=== PATIENT | female | born 1990 | race Caucasian/White ===

== ENCOUNTER 2020-01-04 17:36 | Observation (INO) ==
[2020-01-04] MEDS ORDERED: Isovue-370 500 ML BOTTLE IVP ONE (17:53)
[2020-01-04 18:08] LABS: Hematocrit 38.8 % (35.3-44.9); Mean Corpuscular HGB Conc 30.9 g/dL (31.6-35.5); Mean Corpuscular Hemoglobin 23.2 pg (28.0-33.3); Mean Corpuscular Volume 74.9 fL (83.0-100.0); Mean Platelet Volume 9.7 fL (9.4-12.4); Platelet Count 343 K/mcL (140-400); Red Blood Count 5.18 M/mcL (3.82-4.97); Red Cell Distribution Width 14.6 % (11.5-14.5); White Blood Count 9.8 K/mcL (4.3-11.1)
[2020-01-04 18:15] LABS: Prothrombin Time 11.9 Seconds (9.4-12.1)
[2020-01-04 18:18] LABS: Activated Partial Thrombo Time 31.8 Seconds (26.0-36.0)
[2020-01-04 18:28] LABS: Troponin I < 0.03 ng/mL (< 0.04)
[2020-01-04 18:30] LABS: BUN/Creatinine Ratio 13 (6-26); Blood Urea Nitrogen 9 mg/dL (6-20); Calcium 9.3 mg/dL (8.6-10.3); Carbon Dioxide 23 mEq/L (23-29); Chloride 106 mEq/L (98-107); Glucose 123 mg/dL (70-105); Osmolality,Calculated 284 (280-300); Potassium 3.2 mEq/L (3.5-5.1); Sodium 137 mEq/L (136-145); eGFR For African Americans > 60 (> 60); eGFR For Non-African Americans > 60 (> 60)
[2020-01-04] MEDS ORDERED: 0.9 % Sodium Chloride 1,000 ML IVC ONE (18:41)
[2020-01-04] MEDS ORDERED: Metoclopramide 10 MG/2 ML VIAL IVP ONE (18:41)
[2020-01-04] MEDS ORDERED: Aspirin Enteric Coated 325 MG Tablet PO ONE (21:00)
[2020-01-05 02:30] LABS: Bilirubin,Urine Negative (Negative); Blood,Urine Negative (Negative); Clarity,Urine Clear (Clear); Color,Urine Light-Yellow (Yellow); Glucose,Urine (UA) Normal (Normal); Ketones,Urine Negative (Negative); Leukocyte Esterase,Urine Small (Negative); Mucus,Urine Few per lpf (None-Few); Nitrite,Urine Negative (Negative); Protein,Urine Negative (Neg-Trace); RBC,Urine 0-3 per hpf (0-3); Specific Gravity,Urine > 1.030 (1.010-1.025); Squamous Epithelial Cell,Urine Few per hpf (None-Few); Urobilinogen,Urine Normal (Normal)
[2020-01-05 02:40] LABS: Amphetamine Screen,Urine Negative ng/mL (Cutoff=1000); Barbiturate Screen,Urine Negative ng/mL (Cutoff=200); Benzodiazepines Screen,Urine Negative ng/mL (Cutoff=200); Cannabinoid Screen,Urine Negative ng/mL (Cutoff = 50); Cocaine Screen,Urine Negative ng/mL (Cutoff= 300); Opiate Screen,Urine Negative ng/mL (Cutoff=300); Phencyclidine Screen,Urine Negative ng/mL (Cutoff=25)
[2020-01-05 05:30] LABS: Hematocrit 32.3 % (35.3-44.9); Mean Corpuscular Hemoglobin 23.2 pg (28.0-33.3); Mean Corpuscular Volume 74.9 fL (83.0-100.0); Mean Platelet Volume 10.1 fL (9.4-12.4); Platelet Count 282 K/mcL (140-400); Red Blood Count 4.31 M/mcL (3.82-4.97); Red Cell Distribution Width 14.6 % (11.5-14.5); White Blood Count 8.9 K/mcL (4.3-11.1)
[2020-01-05 05:49] LABS: BUN/Creatinine Ratio 13 (6-26); Blood Urea Nitrogen 8 mg/dL (6-20); Calcium 8.1 mg/dL (8.6-10.3); Carbon Dioxide 21 mEq/L (23-29); Chloride 109 mEq/L (98-107); Chol/HDL Ratio 3.9 (0-4.9); Cholesterol 116 mg/dL (< 200); Glucose 98 mg/dL (70-105); HDL Cholesterol 30 mg/dL (40-59); LDL Cholesterol,Calculated 57 mg/dL (< 100); Osmolality,Calculated 284 (280-300); Potassium 3.4 mEq/L (3.5-5.1); Sodium 138 mEq/L (136-145); Triglycerides 146 mg/dL (< 150); eGFR For African Americans > 60 (> 60); eGFR For Non-African Americans > 60 (> 60)
[2020-01-05 07:01] LABS: Estimated Average Glucose 123 mg/dl
[2020-01-05] MEDS ORDERED: Ketorolac 15 MG/ML VIAL IVP PRN (07:10)
[2020-01-05] MEDS ORDERED: Potassium Chloride Elixir 20 MEQ/15 ML UDC PO SCH (12:45)
[2020-01-06] MEDS ORDERED: GuaiFENesin/Dextromethorphan TABLET PO PRN (09:42)
[2020-01-06 11:18] VITALS: BP 111/75
== END 2020-01-06 15:05 | disposition home or self-care (01) ==
LOC: 3BNU 17:36 → EMEROOARM 17:36 → SUATTDRO 20:56 → 3BNU 21:44
PROVIDERS: ADMIT Internal Medicine; ATTEND Internal Medicine